=== PATIENT | male | born 1930 | race Caucasian/White ===

== ENCOUNTER 2019-09-06 10:35 | Emergency (ER) | payer MEDICARE ==
--- NOTE | 2019-09-29 14:25 | Diagnostic Imaging Report ---
ACACIA VALENTINO [facility] [address] [facility].[address] 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 No visible fractures, dislocation or bone destruction. 2 mm metallic foreign body in the soft tissue of the left hand at the level of the left 5th metacarpal. Soft tissue swelling of the dorsum of the left hand. Impression: Moderate osteoarthritis Soft tissue swelling 2 mm metallic foreign body no soft tissue No fractures Electronically signed on Sep 06, 2019 11:57:33 AM CDT by: Collins TRIMBLE
== END 2019-09-06 12:07 ==
LOC: ED 10:35
DX: S60.222A Contusion of left hand, initial encounter (principal); W22.8XXA Striking against or struck by other objects, initial encounter
CPT/HCPCS: 73130; 99282